=== PATIENT | female | born 1990 | race Asian ===

== ENCOUNTER 2016-03-30 18:03 | Emergency (ER) | payer SELFPAY ==
[~2016-03-30 18:03] MED LIST: AZIT500T PO; IBUP-1027 PO; IBUP-1060 PO; PENI500T PO; TRAM-29 PO
[2016-03-30 18:10] VITALS: BP 121/57
[2016-03-30] MEDS ORDERED: HYDR15SO4 PO (18:44)
[2016-03-30] MEDS ORDERED: PRED20TA PO (18:44)
[2016-03-30] MEDS ORDERED: AZIT250T6 PO (18:44)
--- NOTE | 2016-03-30 18:44 | PHYS DOC ---
Past Medical History Past Medical History: No Pertinent History Additional Past Medical Histor: MULTIPLE MINOR STROKES WHILE Past Surgical History: Other Additional Past Surgical Histo: left knee, left ear, left thumb Alcohol Use: None Drug Use: None Adult General Chief Complaint Chief Complaint: MULTIPLE COMPLAINTS HPI HPI Patient is a 25 year old female presents emergency room with complaint of headache, body aches, nonproductive cough and chest pain that began approximately 3-4 days ago. Patient is 33 weeks . She denies any history of cardiopulmonary disease. She states that her so far is been otherwise uncomplicated. She denies any history of problems with blood pressure with this or her previous . She denies any known ill contacts, hospitalization or foreign travel within the past 90 days. She denies abdominal pain, dysuria, pelvic pain, vaginal bleeding or vaginal discharge. Review of Systems Review of Systems Constitutional: Denies fever or chills. Eyes: Denies change in visual acuity, redness, or eye pain [] HENT: Denies nasal congestion or sore throat Respiratory: Patient reports central chest pain and nonproductive cough. She denies difficulty breathing or wheezing. Cardiovascular: Patient denies exertional dyspnea, orthopnea or PND. She denies palpitations. GI: Denies abdominal pain, nausea, vomiting, bloody stools or diarrhea : Denies dysuria or hematuria. Patient is approximately 33 weeks . She denies pelvic pain, vaginal bleeding or vaginal discharge. Musculoskeletal: Denies back pain or joint pain [] Integument: Denies rash or skin lesions [] Neurologic: Denies headache, focal weakness or sensory changes [] Endocrine: Denies polyuria or polydipsia [] Allergies Allergies Allergies Coded Allergies Type Severity Reaction Last Updated Verified [place] Allergy Severe anaphylaxis 01/10/14 Yes Physical Exam Physical Exam Constitutional: Well developed, well nourished, no acute distress, non-toxic appearance. Patient is not hypertensive. Patient sitting upright in a chair no acute distress. HENT: Normocephalic, atraumatic, bilateral external ears normal, oropharynx moist, no oral exudates, nose normal. Eyes: PERRLA, EOMI, conjunctiva normal, no discharge. [] Neck: Normal range of motion, no tenderness, supple, no stridor. [] Cardiovascular:Heart rate regular rhythm, no murmur [] Lungs & Thorax: There is no evidence of respiratory distress respiratory fatigue. Patient's chest is tender to palpation on the left sternal border without palpable defect, deformity or subcutaneous emphysema. Patient demonstrates full chest excursion with deep inspiration. Her lungs are clear to auscultation bilaterally. PMI is not displaced. Abdomen: Bowel sounds normal, soft, no tenderness, no masses, no pulsatile masses. [] Skin: Warm, dry, no erythema, no rash. [] Back: No tenderness, no CVA tenderness. [] Extremities: No tenderness, no cyanosis, no clubbing, ROM intact, no edema. [] Neurologic: Alert and oriented X 3, normal motor function, normal sensory function, no focal deficits noted. [] Psychologic: Affect normal, judgement normal, mood normal. [] Current Patient Data Vital Signs Vital Signs Date Time Temp Pulse Resp B/P Pulse Ox O2 Delivery O2 Flow Rate FiO2 03/30/16 18:10 98.0 91 18 121/57 96 Room Air 98.0 EKG EKG [] Radiology/Procedures Radiology/Procedures [] Course & Med Decision Making Course & Med Decision Making Pertinent Labs and Imaging studies reviewed. (See chart for details) [] Dragon Disclaimer Dragon Disclaimer This electronic medical record was generated, in whole or in part, using a voice recognition dictation system. Departure Departure Impression: Primary Impression: Cough Additional Impressions: Costochondritis Viral syndrome Disposition: 01 HOME, SELF-CARE Condition: GOOD Referrals: NO PCP (PCP) Patient Instructions: Costochondritis, [id number], Cough, Adult, [id number] , Viral Syndrome Additional Instructions: 1. Take the medication as prescribed. 2. Please review the discharge instructions for reasons to return to the emergency room. 3. Call Dr. Barillas's office in the morning to schedule follow-up appointment. Scripts Hydrocodone Bit/Acetaminophen (Hydrocodone-Apap 7.5-325/15 Soln )15 Ml [id number] Ml PO PRN Q6HRS PRN PAIN #120 ML Ref 0 Prov:ERNESTINE EVANS 03/30/16 Prednisone 20 Mg Tablet2 Tab PO DAILY 5 Days Prov:ERNESTINE EVANS 03/30/16 Azithromycin (Azithromycin Tablet)250 Mg Tablet1 Pkg PO UD #6 TAB Prov:ERNESTINE EVANS 03/30/16 Problem Qualifiers ERNESTINE EVANS Mar 30, 2016 18:44
== END 2016-03-30 18:45 | disposition home or self-care (01) ==
LOC: ER 18:03
DX: O26.893 Other specified pregnancy related conditions, third trimester (principal); M94.0 Chondrocostal junction syndrome [Tietze]; Z3A.33 33 weeks gestation of pregnancy; R05 Cough; R51 Headache; B34.9 Viral infection, unspecified; Z91.018 Allergy to other foods
CPT/HCPCS: 99283

== ENCOUNTER 2017-01-05 15:50 | Emergency (ER) | payer OTHER ==
[~2017-01-05 15:50] MED LIST changes: +AZIT250T6 PO; +HYDR15SO4 PO; +PRED20TA PO; -TRAM-29 PO; +TRAM-48 PO
[2017-01-05] MEDS ORDERED: CIPR10DR AS ×2 (16:14→16:15)
[2017-01-05 16:15] VITALS: BP 121/86
--- NOTE | 2017-01-05 16:15 | PHYS DOC ---
Past Medical History Past Medical History: No Pertinent History Additional Past Medical Histor: MULTIPLE MINOR STROKES WHILE Past Surgical History: Other Additional Past Surgical Histo: left knee, left ear, left thumb Alcohol Use: None Drug Use: None Adult General Chief Complaint Chief Complaint: EARACHE/EAR PAIN [facility] HPI Patient is a 26 year old female with complaints of left ear pain. She states that she's had pain for one week. She has no other complaints. Review of Systems Review of Systems Constitutional: Denies fever or chills [] Eyes: Denies change in visual acuity, redness, or eye pain [] HENT: Denies nasal congestion or sore throat, left ear pain [] Respiratory: Denies cough or shortness of breath [] Cardiovascular: No additional information not addressed in HPI [] GI: Denies abdominal pain, nausea, vomiting, bloody stools or diarrhea [] : Denies dysuria or hematuria [] Musculoskeletal: Denies back pain or joint pain [] Integument: Denies rash or skin lesions [] Neurologic: Denies headache, focal weakness or sensory changes [] Endocrine: Denies polyuria or polydipsia [] Allergies Allergies Allergies Coded Allergies Type Severity Reaction Last Updated Verified [place] Allergy Severe anaphylaxis 01/10/14 Yes Physical Exam Physical Exam Constitutional: Well developed, well nourished, no acute distress, non-toxic appearance. [] HENT: Normocephalic, atraumatic, left external canal swollen with erythema, no discharge noted. Tympanic membrane not visualized on the left. Right tympanic membranes pearly calvo., oropharynx moist, no oral exudates, nose normal. [] Eyes: PERRLA, EOMI, conjunctiva normal, no discharge. [] Neck: Normal range of motion, no tenderness, supple, no stridor. [] Cardiovascular:Heart rate regular rhythm, no murmur [] Lungs & Thorax: Bilateral breath sounds clear to auscultation [] Abdomen: Bowel sounds normal, soft, no tenderness, no masses, no pulsatile masses. [] Skin: Warm, dry, no erythema, no rash. [] Back: No tenderness, no CVA tenderness. [] Extremities: No tenderness, no cyanosis, no clubbing, ROM intact, no edema. [] Neurologic: Alert and oriented X 3, normal motor function, normal sensory function, no focal deficits noted. [] Psychologic: Affect normal, judgement normal, mood normal. [] EKG EKG [] Radiology/Procedures Radiology/Procedures [] Course & Med Decision Making Course & Med Decision Making Pertinent Labs and Imaging studies reviewed. (See chart for details) [] Dragon Disclaimer Dragon Disclaimer This electronic medical record was generated, in whole or in part, using a voice recognition dictation system. Departure Departure Impression: Primary Impression: Otitis externa Disposition: HOME, SELF-CARE Condition: STABLE Referrals: NO PCP (PCP) [facility] Patient Instructions: Otitis Externa Scripts Ciprofloxacin/Hydrocortisone (CIPRO HC OTIC SUSPENSION) 10 Ml Drops.susp 3 DROP BID for 7 Days, #10 ML Prov: DINA NICOLE APRN 01/05/17 Problem Qualifiers Primary Impression: Otitis externa Otitis externa type: other infective Chronicity: acute Laterality: left Qualified Codes: H60.392 - Other infective otitis externa, left ear DINA NICOLE APRN Jan 05, 2017 16:15
== END 2017-01-05 16:29 | disposition home or self-care (01) ==
LOC: ER 15:50
DX: H60.92 Unspecified otitis externa, left ear (principal); Z91.018 Allergy to other foods
CPT/HCPCS: 99283

== ENCOUNTER 2017-10-22 04:37 | Emergency (ER) | payer OTHER ==
[2017-10-22] MEDS: fentaNYL PF VIAL 100 MCG/2 ML VIAL IV ×2 (05:05→05:50)
[2017-10-22] MEDS: PROPOFOL 20 ML IV (05:49)
== END 2017-10-22 08:13 | disposition home or self-care (01) ==
LOC: ER 04:37
DX: O9A.213 Injury, poisoning and certain other consequences of external causes complicating pregnancy, third trimester (principal); S43.004A Unspecified dislocation of right shoulder joint, initial encounter; Z91.018 Allergy to other foods; X50.9XXA Other and unspecified overexertion or strenuous movements or postures, initial encounter; Y93.89 Activity, other specified; Y99.8 Other external cause status; Y92.89 Other specified places as the place of occurrence of the external cause
CPT/HCPCS: 23650; 59025; 73030; 99152; 99285-25; J2704; J3010

== ENCOUNTER 2018-10-08 17:45 | Emergency (ER) | payer OTHER ==
[~2018-10-08] VITALS: Ht 162.6 cm; Wt 89.4 kg
[~2018-10-08 17:45] MED LIST changes: +CIPR10DR AS; -HYDR15SO4 PO; +HYDR15SO6 PO
[2018-10-08 18:13] VITALS: BP 121/63
--- NOTE | 2018-10-08 18:38 | PHYS DOC ---
Past Medical History Past Medical History: No Pertinent History Additional Past Medical Histor: MULTIPLE MINOR STROKES WHILE Past Surgical History: Tubal ligation, Other Additional Past Surgical Histo: LEFT EAR, LEFT KNEE Alcohol Use: None Drug Use: None Adult General Chief Complaint Chief Complaint: MECHANICAL FALL HPI HPI Patient is a 28 year old female who presents with right ankle and left knee pain after slipping and falling down 3 stairs. The injury occurred at approximately 4 PM this afternoon. She states she twisted her right ankle as she went down and then hit her left knee on the ground. She states the pain is sharp and initially was a 10 out of 10 in severity. She states there was minimal swelling and no ecchymosis after the injury. She took 2 tabs of ibuprofen before coming into the emergency department and she states the pain is now currently a 5 out of 10 in severity. She was able to ambulate into the emergency department today with a slight limp. She has normal range of motion and is in no acute distress. She has no other complaints at this time. Review of Systems Review of Systems Constitutional: Denies fever or chills Eyes: Denies redness or eye pain HENT: Denies nasal congestion or sore throat Respiratory: Denies cough or shortness of breath Cardiovascular: Denies chest pain or palpitations GI: Denies abdominal pain, nausea, or vomiting : Denies dysuria or hematuria Musculoskeletal: Right ankle and left knee pain with mild swelling. Integument: Denies rash or skin lesions Neurologic: Denies headache, focal weakness or sensory changes Complete systems were reviewed and found to be within normal limits, except as documented in this note. Allergies Allergies Allergies Coded Allergies Type Severity Reaction Last Updated Verified [place] Allergy Severe anaphylaxis 01/10/14 Yes Physical Exam Physical Exam Constitutional: Well developed, well nourished, no acute distress, non-toxic appearance Eyes: PERRL, EOMI, conjunctiva normal, no discharge Abdomen: Soft, no tenderness Skin: Warm, dry, no erythema, no rash Back: mild right SI joint tenderness, no CVA tenderness Extremities: R. ankle TTP over Tibio talar joint anteriorly. No lateral or medial malleolus tenderness. No Navicular or base of the 5th metatarsal tenderness. Left knee TTP over medial tibiofemoral joint. No patellar or fibular head joint tenderness. Neurologic: Alert and oriented X 3, normal motor function, normal sensory function, no focal deficits noted Psychologic: Affect normal, judgement normal, mood normal Current Patient Data Vital Signs Vital Signs Date Time Temp Pulse Resp B/P (MAP) Pulse Ox O2 Delivery O2 Flow Rate FiO2 10/08/18 18:13 98.4 63 16 121/63 (82) 99 Room Air 98.4 EKG EKG [] Radiology/Procedures Radiology/Procedures [] Course & Med Decision Making Course & Med Decision Making Patient is a 28-year-old female who presents after a mechanical fall with right ankle and left knee pain. The patient is comfortable on exam and has had good response to ibuprofen at home. No imaging was obtained due to [place] ankle and knee rules being satisfied for rule out criteria. The patient was educated as to rise therapy. Patient stable for discharge with outpatient follow-up with PCP. Discussed findings and plan with patient, who acknowledges understanding and agreement. Dragon Disclaimer Dragon Disclaimer This electronic medical record was generated, in whole or in part, using a voice recognition dictation system. Departure Departure Impression: Primary Impression: Ankle sprain Additional Impression: Knee contusion Disposition: 01 HOME, SELF-CARE Condition: STABLE Referrals: NO PCP (PCP) TYLER HEBERT MD Patient Instructions: Ankle Sprain, [id number], Contusion, [id number], Knee Wraps (Elastic Bandage) and RICE Additional Instructions: Use over the counter Tylenol and Ibuprofen for pain or discomfort. ICE areas of pain 20 min on then leave off for next 20 min. Problem Qualifiers Primary Impression: Ankle sprain Encounter type: initial encounter Involved ligament of ankle: unspecified ligament Laterality: right Qualified Codes: S93.401A - Sprain of unspecified ligament of right ankle, initial encounter Additional Impression: Knee contusion Encounter type: initial encounter Laterality: left Qualified Codes: S80.02XA - Contusion of left knee, initial encounter RADHA NUNEZ DO Oct 08, 2018 18:38
== END 2018-10-08 18:49 | disposition home or self-care (01) ==
LOC: ER 17:45
DX: S93.491A Sprain of other ligament of right ankle, initial encounter (principal); S80.02XA Contusion of left knee, initial encounter; M53.3 Sacrococcygeal disorders, not elsewhere classified; Z98.51 Tubal ligation status; Z91.018 Allergy to other foods; W10.9XXA Fall (on) (from) unspecified stairs and steps, initial encounter; Y93.89 Activity, other specified; Y92.89 Other specified places as the place of occurrence of the external cause; Y99.8 Other external cause status
CPT/HCPCS: 99281; 99282

== ENCOUNTER 2019-01-05 01:10 | Emergency (ER) | payer OTHER ==
[~2019-01-05] VITALS: Ht 162.6 cm; Wt 94.8 kg
--- NOTE | 2019-01-05 01:40 | PHYS DOC ---
Past Medical History Past Medical History: Other Additional Past Medical Histor: MULTIPLE MINOR STROKES WHILE , multiple shoulder dislocations Past Surgical History: Tubal ligation, Other Additional Past Surgical Histo: LEFT EAR, LEFT KNEE Alcohol Use: Sober Drug Use: None Adult General Chief Complaint Chief Complaint: SHOULDER INJURY HPI HPI 28-year-old female presents with a right shoulder injury. She states she was driving her car today when her right hand was up on the steering wheel she looked back towards the back seat and felt severe immediate pain in her right shoulder. She states after that any movement causes severe pain to the right shoulder. She states it feels similar to a previous dislocation. She denies any other injury.[] Review of Systems Review of Systems Constitutional: Denies fever or chills [] Eyes: Denies change in visual acuity, redness, or eye pain [] HENT: Denies nasal congestion or sore throat [] Respiratory: Denies cough or shortness of breath [] Cardiovascular: No additional information not addressed in HPI [] GI: Denies abdominal pain, nausea, vomiting, bloody stools or diarrhea [] : Denies dysuria or hematuria [] Musculoskeletal: Per history of present illness[] Integument: Denies rash or skin lesions [] Neurologic: Denies headache, focal weakness or sensory changes [] Endocrine: Denies polyuria or polydipsia [] All other systems were reviewed and found to be within normal limits, except as documented in this note. Current Medications Current Medications Current Medications Medications (Trade) Dose Ordered Sig/Bennie Start Time Stop Time Status Last Admin Dose Admin Ketamine HCl (Ketamine) 95 mg 1X ONCE 01/05/19 01:45 01/05/19 01:46 DC 01/05/19 01:57 95 MG Allergies Allergies Allergies Coded Allergies Type Severity Reaction Last Updated Verified [place] Allergy Severe anaphylaxis 01/10/14 Yes Physical Exam Physical Exam Constitutional: Well developed, well nourished, moderate to severe distress, non-toxic appearance. [] HENT: Normocephalic, atraumatic, bilateral external ears normal, oropharynx moist, no oral exudates, nose normal. [] Eyes: PERRLA, EOMI, conjunctiva normal, no discharge. [] Neck: Normal range of motion, no tenderness, supple, no stridor. [] Cardiovascular:Heart rate regular rhythm, no murmur [] Lungs & Thorax: Bilateral breath sounds clear to auscultation [] Abdomen: Bowel sounds normal, soft, no tenderness, no masses, no pulsatile masses. [] Skin: Warm, dry, no erythema, no rash. [] Back: No tenderness, no CVA tenderness. [] Extremities: Right shoulder decreased range of motion secondary to pain there is obvious abnormality consistent with an anterior dislocation. [] Neurologic: Alert and oriented X 3, normal motor function, normal sensory function, no focal deficits noted. [] Psychologic: Extremely anxious. [] Current Patient Data Vital Signs Vital Signs Date Time Temp Pulse Resp B/P (MAP) Pulse Ox O2 Delivery O2 Flow Rate FiO2 01/05/19 02:20 98.1 72 16 166/86 (112) 100 Nasal Cannula 6.0 98.1 EKG EKG [] Radiology/Procedures Radiology/Procedures [] Impressions: Right shoulder x-ray: Anterior dislocation as interpreted by me Course & Med Decision Making Course & Med Decision Making Pertinent Labs and Imaging studies reviewed. (See chart for details) [Procedure: Right shoulder reduction Informed consent was obtained. Please see moderate sedation record. Patient was given 1 mg/kg of IV ketamine with excellent sedation. Then using immobilization and axial traction the right shoulder was easily reduced the deformity was improved a repeat x-ray was performed which showed good placement. Patient tolerated the procedure very well.] Dragon Disclaimer Dragon Disclaimer This electronic medical record was generated, in whole or in part, using a voice recognition dictation system. Departure Departure Impression: Primary Impression: Anterior dislocation of right shoulder Disposition: 01 HOME, SELF-CARE Condition: IMPROVED Referrals: NO PCP (PCP) CHUNG FERNANDES MD Patient Instructions: Shoulder Dislocation Additional Instructions: It is very important that you follow with the orthopedic surgeon within the next few days. Please wear your immobilizer until seen by the orthopedic surgeon Scripts Hydrocodone/Apap 5-325 (NORCO 5-325 TABLET) 1 Each Tablet 1 TAB PO PRN Q6HRS PRN for PAIN, #20 TAB 0 Refills Prov: SHELLIE CORONEL DO 01/05/19 MODERATE SEDATION ASSESSMENT* RISKS/ALTERNATIVES Risks/Alternatives Risks and alternatives of this type of sedation and procedure discussed with: RISK/ALTERNATIVES: Patient H & P ON CHART H & P H & P on chart and reviewed for co-morbid conditions and appropriate labs. H&P ON CHART: Yes STATUS PREG STATUS ASSESSED: Yes MEDS/ALLERGIES REVIEWED Meds/Allergies Reviewed Medications and Allergies including time and route of recently administered narcotics and sedatives. MEDS/ALLERGIES REVIEWED: Yes ASA RATING ASA RATING: I AIRWAY ASSESSMENT Airway Assessment Airway patency, oral function limitations, presence of caps, crowns, dentures, partials, and ability to extend neck assessed. AIRWAY ASSESSMENT: Yes MALLAMPATI SCORE MALLAMPATI SCORE: I PRE-SEDATION ASSESSMENT PRE-SEDATION ASSESSMENT: Yes Problem Qualifiers Primary Impression: Anterior dislocation of right shoulder Encounter type: initial encounter Qualified Codes: S43.014A - Anterior dislocation of right humerus, initial encounter SHELLIE CORONEL DO Jan 05, 2019 01:39
[2019-01-05 01:41] VITALS: BP 143/80
[2019-01-05] MEDS ORDERED: KETAMINE HCL IN NACL, ISO-OSM 50 MG/5 ML SYRINGE IV ONE (01:45)
[2019-01-05] MEDS ORDERED: HYDR-3164 PO (02:06)
[2019-01-05 03:20] VITALS: BP 134/74
--- NOTE | 2019-01-05 05:03 | RAD ---
Study: SHOULDER 2+V RIGHT Indication: Shoulder injury. Comparison: 10/22/2017 Findings: Anterior/inferior dislocation of the humeral head relative to the glenoid. Limited evaluation for an associated fracture given humeral head displacement as well as poor soft tissue penetration from overlying soft tissues. AC joint alignment is maintained. Impression: Anterior/inferior glenohumeral joint dislocation. Attention on post reduction radiographs for any associated fractures. Electronically signed by: KRISHNA SALINAS MD (01/05/2019 5:00 AM) [id number]
--- NOTE | 2019-01-05 06:09 | RAD ---
Study: SHOULDER RIGHT 1V Indication: Status post reduction. Comparison: 01/05/2019 at 0118 hours. Findings: Interval successful reduction of previously seen anterior/inferior glenohumeral joint dislocation. Evaluation for fractures is made difficult by superimposed soft tissues. No displaced fracture is seen and slight irregularity at the inferior glenoid could be artifactual. Impression: Successful interval reduction of a right shoulder dislocation. Limited evaluation for an associated fracture given superimposed soft tissues and patient positioning. If there is ongoing shoulder dysfunction, the shoulder would be better assessed with nonemergent cross-sectional imaging. Electronically signed by: KRISHNA SALINAS MD (01/05/2019 6:06 AM) [facility]
== END 2019-01-05 03:34 | disposition home or self-care (01) ==
LOC: ER 01:10
DX: S43.014A Anterior dislocation of right humerus, initial encounter (principal); Z91.018 Allergy to other foods; X58.XXXA Exposure to other specified factors, initial encounter; Y93.89 Activity, other specified; Y92.89 Other specified places as the place of occurrence of the external cause; Y99.8 Other external cause status
CPT/HCPCS: 23650; 73020; 73030; 99285-25

== ENCOUNTER 2019-01-27 08:38 | Emergency (ER) | payer OTHER ==
[~2019-01-27] VITALS: Ht 162.6 cm; Wt 99.3 kg
[~2019-01-27 08:38] MED LIST changes: +HYDR-3164 PO
[2019-01-27 08:50] VITALS: BP 144/97
[2019-01-27] MEDS ORDERED: AMOX875T PO (09:43)
[2019-01-27] MEDS ORDERED: CIPR7.5D AD (09:43)
[2019-01-27] MEDS ORDERED: HYDR-3164 PO (09:43)
--- NOTE | 2019-01-27 09:44 | PHYS DOC ---
Past Medical History Past Medical History: Other Additional Past Medical Histor: MULTIPLE MINOR STROKES WHILE , multiple shoulder dislocations Past Surgical History: Tubal ligation, Other Additional Past Surgical Histo: LEFT EAR, LEFT KNEE Alcohol Use: Sober Drug Use: None Adult General Chief Complaint Chief Complaint: EARACHE/EAR PAIN [facility] HPI Patient is a 28 year old female who presents to the ED today complaining of 10 out of 10 and right ear pain who presents to the ED today complaining of right ear pain with drainage that began on Thursday last week. Patient denies any fever coughing or congestion. She states she is currently on amoxicillin 500 mg twice a day for dental infection. She is also taking hydrocodone from shoulder dislocation she sustained in the beginning of December 2018. He describes the ear pain as throbbing and intermittent. Denies any exacerbating factors. She also reports she has tried using [id number] eardrops with no relief. Review of Systems Review of Systems Constitutional: Denies fever or chills [] Eyes: Denies change in visual acuity, redness, or eye pain [] HENT: Reports right ear pain with drainage. Denies nasal congestion or sore throat [] Respiratory: Denies cough or shortness of breath [] Cardiovascular: No additional information not addressed in HPI [] GI: Denies abdominal pain, nausea, vomiting, bloody stools or diarrhea [] : Denies dysuria or hematuria [] Musculoskeletal: Denies back pain or joint pain [] Integument: Denies rash or skin lesions [] Neurologic: Denies headache, focal weakness or sensory changes [] Endocrine: Denies polyuria or polydipsia [] All other systems were reviewed and found to be within normal limits, except as documented in this note. Allergies Allergies Allergies Coded Allergies Type Severity Reaction Last Updated Verified [place] Allergy Severe anaphylaxis 01/10/14 Yes Physical Exam Physical Exam Constitutional: Well developed, well nourished, no acute distress, non-toxic appearance. [] HENT: Normocephalic, atraumatic, oropharynx moist, no oral exudates, nose normal. 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 Right ear canal is moderately injected, the TM is injected as well. Eyes: PERRLA, EOMI, conjunctiva normal, no discharge. [] Neck: Normal range of motion, no tenderness, supple, no stridor. [] Cardiovascular:Heart rate regular rhythm, no murmur [] Lungs & Thorax: Bilateral breath sounds clear to auscultation [] Abdomen: Bowel sounds normal, soft, no tenderness, no masses, no pulsatile masses. [] Skin: Warm, dry, no erythema, no rash. [] Back: No tenderness, no CVA tenderness. [] Extremities: No tenderness, no cyanosis, no clubbing, ROM intact, no edema. [] Neurologic: Alert and oriented X 3, normal motor function, normal sensory function, no focal deficits noted. [] Psychologic: Affect normal, judgement normal, mood normal. [] Current Patient Data Vital Signs Vital Signs Date Time Temp Pulse Resp B/P (MAP) Pulse Ox O2 Delivery O2 Flow Rate FiO2 01/27/19 08:50 98.3 92 18 144/97 (113) 98 Room Air 98.3 EKG EKG [] Radiology/Procedures Radiology/Procedures [] Course & Med Decision Making Course & Med Decision Making Pertinent Labs and Imaging studies reviewed. (See chart for details) Patient has right otitis externa and hepatitis media, she is currently on amoxicillin 500 mg, we will switch her to amoxicillin 875 mg and Ciprodex. Follow-up with ENT in one week. Dragon Disclaimer Dragon Disclaimer This electronic medical record was generated, in whole or in part, using a voice recognition dictation system. Departure Departure Impression: Primary Impression: Otitis media Additional Impression: Otitis externa Disposition: 01 HOME, SELF-CARE Condition: STABLE Referrals: UNKNOWN PCP NAME (PCP) ADAN CARSON MD follow up next week Patient Instructions: Otitis Externa, Otitis Media, Adult Additional Instructions: You were seen for ear infection, we put you on antibiotics, stop taking the am oxicillin 500 mg start taking the new prescription for 875 mg. Stop using [id number] ear drops and start using the prescription eardrops. Follow-up with the provided ENT in 1-2 weeks. Prescriptions were sent to your pharmacy Scripts Ciprofloxacin Hcl/Dexameth (CIPRODEX OTIC SUSPENSION) 7.5 Ml Drops.susp 4 DROP AD BID, #7.5 ML use for 7-10 days Prov: CINDY BISHOP APRN 01/27/19 Amoxicillin (AMOXICILLIN) 875 Mg Tablet 1 TAB PO BID, #20 TAB Prov: MUTUNGA,CINDY FOOD PROCESSING CHEMIST 01/27/19 Problem Qualifiers Primary Impression: Otitis media Otitis media type: other nonsuppurative Chronicity: acute Laterality: right Recurrence: non-recurrent Qualified Codes: H65.191 - Other acute nonsuppurative otitis media, right ear Additional Impression: Otitis externa Otitis externa type: other infective Chronicity: acute Laterality: right Qualified Codes: H60.391 - Other infective otitis externa, right ear CINDY BISHOP FOOD PROCESSING CHEMIST Jan 27, 2019 09:44
== END 2019-01-27 09:52 | disposition home or self-care (01) ==
LOC: ER 08:38
DX: H65.191 Other acute nonsuppurative otitis media, right ear (principal); H60.391 Other infective otitis externa, right ear; Z91.018 Allergy to other foods
CPT/HCPCS: 99283

== ENCOUNTER 2019-09-16 19:43 | Emergency (ER) | payer OTHER ==
[~2019-09-16] VITALS: Ht 162.6 cm; Wt 100.0 kg
[~2019-09-16 19:43] MED LIST changes: +AMOX875T PO; +CIPR7.5D AD
[2019-09-16 21:27] VITALS: BP 122/78
[2019-09-16] MEDS ORDERED: AZIT250T6 PO (21:52)
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
[2019-09-16] MEDS ORDERED: ONDA4TAB12 PO (21:59)
[2019-09-16] MEDS ORDERED: ONDANSETRON ODT 4 MG TAB.RAPDIS. PO ONE (22:30)
== END 2019-09-16 22:19 | disposition home or self-care (01) ==
LOC: ER 19:43
DX: J02.9 Acute pharyngitis, unspecified (principal); R11.0 Nausea; R05 Cough; F17.200 Nicotine dependence, unspecified, uncomplicated; Z98.51 Tubal ligation status; Z98.890 Other specified postprocedural states; Z91.018 Allergy to other foods
CPT/HCPCS: 87070; 87880; 99283

== ENCOUNTER 2020-04-24 03:37 | Emergency (ER) | payer OTHER ==
[~2020-04-24] VITALS: Ht 162.6 cm; Wt 95.4 kg
[~2020-04-24 03:37] MED LIST changes: +ONDA4TAB12 PO
[2020-04-24 03:40] VITALS: BP 157/94
[2020-04-24] MEDS ORDERED: ACETAMINOPHEN 500 MG TABLET PO ONE (03:45)
[2020-04-24] MEDS ORDERED: CYCLOBENZAPRINE 10 MG TABLET. PO ONE (04:00)
[2020-04-24] MEDS ORDERED: IBUPROFEN 400 MG TABLET. PO ONE (04:00)
--- NOTE | 2020-04-24 04:35 | RAD ---
LEFT SHOULDER , 3 VIEWS Clinical Indication: Reason: shoulder pain / Spl. Instructions: / History: Comparison: None. Findings: There is no acute fracture or dislocation. The acromioclavicular and glenohumeral joints are intact. The visualized lung is clear. There is no evidence of a displaced rib fracture. There is no soft tiss ue abnormality. IMPRESSION: No acute fracture or dislocation. Electronically signed by: Lui Rose MD (04/24/2020 4:33 AM) BRENTBRIDGETT
[2020-04-24] MEDS ORDERED: CYCL10TA2 PO (04:47)
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
== END 2020-04-24 04:59 | disposition home or self-care (01) ==
LOC: ER 03:37
DX: S46.912A Strain of unspecified muscle, fascia and tendon at shoulder and upper arm level, left arm, initial encounter (principal); F17.200 Nicotine dependence, unspecified, uncomplicated; Z91.018 Allergy to other foods; V49.49XA Driver injured in collision with other motor vehicles in traffic accident, initial encounter; Y92.488 Other paved roadways as the place of occurrence of the external cause; Y93.89 Activity, other specified; Y99.8 Other external cause status
CPT/HCPCS: 73030; 99284

== ENCOUNTER 2020-11-11 11:00 | Emergency (ER) | payer OTHER ==
[~2020-11-11] VITALS: Ht 162.6 cm; Wt 79.5 kg
[~2020-11-11 11:00] MED LIST changes: +CYCL10TA2 PO
[2020-11-11 11:20] VITALS: BP 150/87
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
--- NOTE | 2020-11-12 11:18 | NUR ---
IP: Informed pt of positive covid test and the need to quarantine for 10 days. Pt verbalized understanding.
== END 2020-11-11 13:40 | disposition home or self-care (01) ==
LOC: ER 11:00
DX: U07.1 COVID-19 (principal); J06.9 Acute upper respiratory infection, unspecified; R43.0 Anosmia; F17.200 Nicotine dependence, unspecified, uncomplicated
CPT/HCPCS: 87426; 99283; U0003; U0005